=== PATIENT | male | born 1990 | race Two or more races ===

== ENCOUNTER 2024-01-14 08:47 | Emergency (ER) | payer BC, OTHER ==
[~2024-01-14] VITALS: Ht 170.2 cm; Wt 83.3 kg
[2024-01-14 09:16] VITALS: BP 143/71; PULSE 71; RESP 16; TEMP 98.3; O2SAT 97
[2024-01-14] MEDS ORDERED: AUG875T PO (09:41)
--- NOTE | 2024-01-14 09:42 | ED.PDOC ---
History of Present Illness HPI Comments This is a 33-year-old male that comes in who has been sick for approximately 1 month. He continues to have thick phlegm combination a yellow and green mucus. It has not improved. He states he had other symptoms but most of that is gone now.. Chief Complaint: Cough Time Seen by MD: 09:04 Primary Care Provider: NONE Reviewed Notes: Nurses Notes, Medications, Allergies Allergies: Coded Allergies: NO KNOWN ALLERGIES (Unverified , 01/14/24) Information Source: Patient Mode of Arrival: Ambulatory Past Medical History PAST MEDICAL HISTORY: Denies Surgical History (Other): ASD repair age 19 Social History Smoker: Non-Smoker Alcohol: Occasionally Drugs: Denies Drug Use Lives In: Home Respiratory: reports: cough Physical Exam General Appearance: No Apparent Distress, Normal HEENT: Normal ENT Inspection, PERRL/EOMI, Pharynx Normal, TMs Normal Neck: Full Range of Motion, Non-Tender, Normal Inspection Respiratory: Chest Non-Tender, Lungs Clear, No Respiratory Distress, Normal Breath Sounds Cardiovascular: Regular Rate/Rhythm Breast Exam: Deferred Gastrointestinal: Non Tender, Normal Bowel Sounds, Soft Genitalia: Deferred Pelvic: Deferred Rectal: Deferred Extremities: Normal inspection, Normal range of motion Neurologic: Alert, No Motor Deficits, Normal Affect, Normal Mood, No Sensory Deficits Cerebellar Function: NOT DONE Reflexes: NOT DONE Skin: Dry, Normal Color, Warm Lymphatic: No Adenopathy Was a procedure done? Was a procedure done?: No Differential Dx Considerations may include: Pharyngitis versus pneumonia X-Ray, Labs, Meds, VS Vital Signs Date Time Temp Pulse Resp B/P (MAP) Pulse Ox O2 Delivery O2 Flow Rate FiO2 01/14/24 09:16 71 16 97 Room Air 01/14/24 09:16 98.3 71 16 143/71 (95) 97 98.3 01/14/24 08:58 98.3 71 16 143/71 (95) 97 X-Ray, Labs, Meds, VS Comment Patient seen and examined by me. Patient has been sick for over a month now with upper respiratory infection. He is not wheezing no rhonchi no indication for an x-ray but I will start him on antibiotics. I offered cough medicine but he is not interested he states most of his symptoms are gone except for the productive cough. Time of 1ST Reevaluation: 09:39 Reevaluation 1ST: Improved Patient Education/Counseling: Diagnosis, Treatment, Prognosis, Need For Follow Up Family Education/Counseling: No Family Present Departure 1 Departure Time of Disposition: 09:39 Impression: Primary Impression: Upper respiratory infection Disposition: HOME / SELF CARE / HOMELESS Condition: Good Additional Instructions: Finish antibiotics as directed even though you are feeling better Drink lots of liquids this will help loosen up the mucus and you can not cough it up Rest, drink lots of fluids e-Prescriptions Amoxicillin & Pot Clavulanate (AUGMENTIN TABLET) 875 Mg Tb 875 MG PO BID for 10 Days, #20 TAB Prov: FERNANDO ARCOS 01/14/24 Discharged With: Self Critical Care Note Critical Care Time?: No Stability Stability form required: FERNANDO Ramirez Jan 14, 2024 09:42
== END 2024-01-14 09:42 | disposition home or self-care (01) ==
LOC: ER 08:47
DX: J06.9 Acute upper respiratory infection, unspecified (principal); Z98.890 Other specified postprocedural states